=== PATIENT | female | born 1965 | race Caucasian/White ===

== ENCOUNTER 2021-01-22 20:54 | Emergency (ER) | payer BC ==
[~2021-01-22] VITALS: Ht 162.6 cm; Wt 109.1 kg
[2021-01-22 21:53] LABS: BASO # 0.04 K/mm3 (0.02-0.10); EOS # 0.26 K/mm3 (0.04-0.40); EOS % 1.9 % (1.0-5.0); HEMATOCRIT 39.6 % (37.0-47.0); LYMPH# 3.49 K/mm3 (1.50-4.00); MEAN CELL VOLUME 98 fl (78-100); MEAN CORPUSCULAR HEMOGLOBIN 32 pg (27-31); MEAN CORPUSCULAR HGB CONC 33 g/dL (33-37); MEAN PLATELET VOLUME 9.1 fl (7.4-10.4); MONO # 0.51 K/mm3 (0.20-0.80); NEU # 9.68 K/mm3 (1.40-6.50); PLATELET COUNT 267 K/mm3 (130-400); RED BLOOD COUNT 4.05 M/mm3 (4.10-5.30); RED CELL DISTRIBUTION WIDTH 12.6 % (11.5-14.5)
[2021-01-22 22:01] LABS: ALBUMIN 3.9 g/dL (3.5-5.0)
[2021-01-22 22:02] LABS: SODIUM 136 mmol/L (136-145)
[2021-01-22 22:03] LABS: CALCIUM 9.5 mg/dL (8.3-10.5)
[2021-01-22 22:04] LABS: GLUCOSE 94 mg/dL (65-105)
[2021-01-22 22:05] LABS: CARBON DIOXIDE 25 mmol/L (22-29)
[2021-01-22 22:06] LABS: TOTAL BILIRUBIN 0.2 mg/dL (0.2-1.2)
[2021-01-22 22:09] LABS: AST-SGOT 13 U/L (5-34)
[2021-01-22 22:11] LABS: ALT/SGPT 11 U/L (0-55)
[2021-01-22 22:12] LABS: ACETAMINOPHEN < 1 ug/mL; ALCOHOL IN-HOUSE < 10 mg/dL (<10)
[2021-01-22 22:17] LABS: URINE APPEARANCE HAZY; URINE BILIRUBIN NEGATIVE (NEGATIVE); URINE BLOOD TRACE (NEGATIVE); URINE COLOR YELLOW; URINE GLUCOSE NEGATIVE (NEGATIVE); URINE KETONE NEGATIVE (NEGATIVE); URINE LEUKOCYTE ESTERASE NEGATIVE (NEGATIVE); URINE NITRATE NEGATIVE (NEGATIVE); URINE PROTEIN(semi-quant) TRACE mg/dL (NEGATIVE); URINE UROBILINOGEN NORMAL (NORMAL)
[2021-01-22 22:18] LABS: URINE WBC 0-1 /hpf (0-3)
[2021-01-23 07:11] VITALS: BP 126/68
== END 2021-01-23 07:11 ==
LOC: ED 20:54
PROVIDERS: Nurse Practitioner Family
DX: F31.9 Bipolar disorder, unspecified (principal); F44.0 Dissociative amnesia; F60.9 Personality disorder, unspecified; R45.851 Suicidal ideations; F17.210 Nicotine dependence, cigarettes, uncomplicated; Z20.822 Contact with and (suspected) exposure to COVID-19

== ENCOUNTER 2023-03-11 12:49 | Outpatient (RCR) | payer MEDICAID ==
[~2023-03-11] VITALS: Ht 162.6 cm; Wt 109.1 kg
[2023-03-11 13:38] VITALS: BP 148/66
[2023-03-11 13:49] LABS: HEMATOCRIT 39.7 % (37.0-47.0); HEMOGLOBIN 12.9 g/dL (12.5-16.0)
--- NOTE | 2023-03-11 14:35 | NUR ---
Pt reports slight lightheadedness after phlebotomy completed and verbalizes that it passed quickly. States her BP runs around 100 systolically usually. BP 109 systolically at this time. IV fluids dc'd and INT removed in it's entirety. Pt ambulates to BR using walker and denies any lightheadedness. Voids. Leaves facility with steady gait using walker.
[2023-03-11 14:43] VITALS: BP 109/70
== END 2023-03-20 | disposition home or self-care (01) ==
LOC: AMSURD
PROVIDERS: Nurse Practitioner
DX: R79.89 Other specified abnormal findings of blood chemistry (principal)
CPT/HCPCS: J7040

== ENCOUNTER 2023-04-06 11:20 | Outpatient (RCR) | payer MEDICAID ==
[2023-03-25 12:00] VITALS: BP 112/75
[2023-03-25 12:20] LABS: HEMATOCRIT 37.1 % (37.0-47.0); HEMOGLOBIN 12.1 g/dL (12.5-16.0)
[~2023-04-06] VITALS: Ht 162.6 cm; Wt 109.1 kg
[~2023-04-06 11:20] MED LIST: NS 500 ML IV ONE
[2023-04-06 12:07] VITALS: BP 118/73
[2023-04-06] MEDS ORDERED: NS 500 ML IV SCH (12:45)
[2023-04-06 14:01] VITALS: BP 115/83
== END 2023-04-20 | disposition home or self-care (01) ==
LOC: AMSURD
PROVIDERS: Nurse Practitioner
DX: R79.89 Other specified abnormal findings of blood chemistry (principal)
CPT/HCPCS: J7040

== ENCOUNTER 2023-04-29 11:58 | Outpatient (RCR) | payer MEDICAID ==
[~2023-04-29] VITALS: Ht 162.6 cm; Wt 109.1 kg
[2023-04-29 12:12] VITALS: BP 125/74
[2023-04-29] MEDS ORDERED: NS 500 ML IV SCH (12:33)
[2023-04-29 12:48] LABS: HEMATOCRIT 40.4 % (37.0-47.0); HEMOGLOBIN 12.7 g/dL (12.5-16.0)
[2023-04-29 13:40] VITALS: BP 116/74
[2023-05-23] MEDS ORDERED: GABAPENTIN TAB600 MG PO (12:37)
[2023-05-23] MEDS ORDERED: LAMOTRIGINE150 MG PO (12:45)
[2023-05-23] MEDS ORDERED: TYLENOL EXTRA500 M2 PO (12:46)
[2023-05-23] MEDS ORDERED: ATORVASTATIN CA40 MG PO (12:49)
[2023-05-23] MEDS ORDERED: DIALYVITE 800800 MCG PO (12:50)
[2023-05-23] MEDS ORDERED: HYDROXYZINE HCL25 M1 PO (12:52)
[2023-05-23] MEDS ORDERED: DESYREL DIVIDO150 M1 PO (12:53)
[2023-05-23] MEDS ORDERED: ASPIRIN E.C. 8181 MG (12:54)
[2023-05-23] MEDS ORDERED: COL-RITE100 M1 PO (12:55)
[2023-05-23] MEDS ORDERED: POTASSIUM CHLO20 ME3 PO (12:57)
[2023-05-23] MEDS ORDERED: GOOD NEIGHBOR200 M1 PO (12:57)
[2023-05-23] MEDS ORDERED: MELATONIN10 MG PO (12:58)
[2023-05-23] MEDS ORDERED: OSTERA TABLET1 EACH PO (12:58)
== END 2023-05-19 | disposition home or self-care (01) ==
LOC: AMSURD
PROVIDERS: Nurse Practitioner
DX: R79.89 Other specified abnormal findings of blood chemistry (principal)
CPT/HCPCS: J7040

== ENCOUNTER → 2023-09-27 | Outpatient (CLI) | payer MEDICARE, OTHER, MEDICAID ==
[~2023-09-27] VITALS: Ht 162.6 cm; Wt 109.1 kg
[~2023-09-27] MED LIST changes: +ASPIRIN E.C. 8181 MG; +ATORVASTATIN CA40 MG PO; +CELEXA 20MG20 MG/TA1 PO; +CLARITIN LIQUI-10 MG PO; +CLONAZEPAM0.5 M1 PO; +COL-RITE100 M1 PO; +DESYREL DIVIDO150 M1 PO; +DIALYVITE 800800 MCG PO; +GABAPENTIN TAB600 MG PO; +GOOD NEIGHBOR200 M1 PO; +HYDROXYZINE HCL25 M1 PO; +LAMOTRIGINE150 MG PO; +LASIX20 M1 PO; +MELATONIN10 MG PO; +MELOXICAM15 MG PO; +OSTERA TABLET1 EACH PO; +POTASSIUM CHLO20 ME3 PO; +TYLENOL EXTRA500 M2 PO
[2023-09-27 10:38] VITALS: BP 109/62
--- NOTE | 2023-09-27 11:28 | NUR ---
LAB ONLY ABLE TO GET 200ML OF BLOOD FOR PHLEBOTOMY TODAY. PT WAS A DIFFICULT IV STICK TODAY. STATES SHE HASNT DRANK A LOT OF WATER . CONTINUED WITH GIVING HER 500ML OF IVF PER IV IN LEFT FA
[2023-09-27 11:42] VITALS: BP 107/69
== END ==
LOC: AMSURD 10:20
DX: R79.89 Other specified abnormal findings of blood chemistry (principal)
CPT/HCPCS: J7040

== ENCOUNTER → 2023-09-27 | Outpatient (CLI) | payer MEDICARE, OTHER, MEDICAID ==
[~2023-09-27] MED LIST changes: -NS 500 ML IV ONE
[2023-09-28 17:22] LABS: HEMOGLOBIN 12.7 g/dL (12.5-16.0)
[2023-09-28 17:23] LABS: HEMATOCRIT 40.6 % (37.0-47.0)
== END ==
LOC: LAB 10:23
PROVIDERS: Internal Medicine
DX: R79.89 Other specified abnormal findings of blood chemistry (principal)